=== PATIENT | female | born 1955 | race Caucasian/White ===

== ENCOUNTER 2019-11-17 13:56 | Inpatient (IN) | payer MEDICARE, MEDICAID ==
[~2019-11-17] VITALS: Ht 160 cm; Wt 82.1 kg
[2019-11-17] MEDS ORDERED: HYDR-3281 PO (14:10)
[2019-11-17] MEDS ORDERED: ONDANSETRON HCL 4MG/2ML INJ IV STA (14:29)
[2019-11-17] MEDS ORDERED: SODIUM CHLORIDE 0.9% 1,000 ML IV ONE (14:29)
[2019-11-17] MEDS ORDERED: MORPHINE SULFATE 4 MG/ML CPJ (NOT FOR IM USE) IV ONE ×2 (15:15→18:45)
[2019-11-17] MEDS ORDERED: FAMOTIDINE 20MG/2ML VIAL IV ONE (15:15)
[2019-11-17 15:43] LABS: HEMATOCRIT. 48.8 % (36.0-48.0); HEMOGLOBIN. 16.6 g/dL (12.0-16.0); MEAN CORPUSCULAR HEMOGLOBIN 29.8 pg (28.0-32.0); MEAN CORPUSCULAR VOLUME 87.3 fL (81.0-99.0); MEAN PLATELET VOLUME 8.4 fl (7.4-10.4); PLATELET 243 x1000/uL (130-400); RED BLOOD CELL COUNT 5.59 mill/uL (4.2-5.4)
[2019-11-17 15:46] LABS: CHLORIDE 102 mEq/L (98-107)
[2019-11-17 15:49] LABS: INR 0.9; PROTHROMBIN TIME 10.3 sec (9.6-11.0)
[2019-11-17 15:50] LABS: ETHANOL BLOOD < 10 mg/dL
[2019-11-17 16:36] LABS: PLATELET ESTIMATE NORMAL
[2019-11-17] MEDS ORDERED: ENALAPRIL 2.5MG/2ML VIAL 2ML IV ONE (17:15)
[2019-11-17 17:28] LABS: CLARITY URINE TURBID (CLEAR); COLOR URINE RED (YELLOW); KETONES URINE 3+ (NEGATIVE); LEUKOCYTE ESTERASE URINE 3+ (NEGATIVE); NITRITE URINE POSITIVE (NEGATIVE); OCCULT BLOOD URINE 3+ (NEGATIVE); PROTEIN URINE 3+ (NEGATIVE)
[2019-11-17] MEDS ORDERED: ENALAPRIL 1.25MG/ML VIAL 1ML IV NR (17:30)
[2019-11-17 17:35] LABS: *BARBITURATES SCREEN URINE NEGATIVE (NEGATIVE); *BENZODIAZEPINES SCREEN URINE NEGATIVE (NEGATIVE)
[2019-11-17 17:36] LABS: *COCAINE SCREEN URINE NEGATIVE (NEGATIVE); CANNABINOID URINE SCREEN PRESUMTIVE POSITIVE (NEGATIVE); METHADONE URINE SCREEN NEGATIVE (NEGATIVE); OPIATES URINE SCREEN PRESUMTIVE POSITIVE (NEGATIVE); PHENCYCLIDINE URINE SCREEN NEGATIVE (NEGATIVE)
[2019-11-17 17:37] LABS: *AMPHETAMINES SCREEN URINE NEGATIVE (NEGATIVE)
[2019-11-17] MEDS ORDERED: LEVOFLOXACIN 500MG PREMIX 100 ML IV ONE (18:30)
[2019-11-17] MEDS ORDERED: HYDRALAZINE 20MG/ML VIAL IV ONE (18:45)
[2019-11-17] MEDS: SODIUM CHLORIDE 0.9% 1,000 ML IV SCH (19:13)
[2019-11-17] MEDS ORDERED: CLONIDINE 0.1MG TABLET PO PRN (19:15)
[2019-11-17] MEDS ORDERED: HYDRALAZINE 20MG/ML VIAL IV PRN (19:15)
[2019-11-17] MEDS ORDERED: ACETAMINOPHEN 325MG TABLET PO PRN (19:15)
[2019-11-17] MEDS ORDERED: ONDANSETRON HCL 4MG/2ML INJ IV PRN (19:15)
[2019-11-17] MEDS ORDERED: DEXTROSE 50% WATER 50ML SYRINGE IV PRN (19:15)
[2019-11-17] MEDS: BLOOD SUGAR DIAGNOSTIC STRIP TEST SCH (21:00)
[2019-11-17 21:21] VITALS: BP 129/69
[2019-11-17] MEDS ORDERED: ZOLPIDEM TARTRATE 5MG TABLET PO PRN (22:15)
[2019-11-17] MEDS: AMLODIPINE 10MG TABLET PO SCH (22:41)
[2019-11-17] MEDS: MORPHINE SULFATE 2 MG/ML CPJ (NOT FOR IM USE) IV PRN (22:41)
[2019-11-17] MEDS: ZOLPIDEM TARTRATE 5MG TABLET PO PRN (22:54)
[2019-11-17] MEDS ORDERED: HYDROCORTISONE 1% RECTAL CREAM 30GM PR PRN (23:00)
[2019-11-17] MEDS: INSULIN LISPRO 100 UNITS/ML SUBCUT SCH (23:01)
[2019-11-17] MEDS: HEPARIN 5000 UNITS/ML VIAL SUBCUT SCH (23:11)
[2019-11-18] VITALS: BP 132/70
[2019-11-18 04:00] VITALS: BP 111/42
[2019-11-18] MEDS: MORPHINE SULFATE 2 MG/ML CPJ (NOT FOR IM USE) IV PRN ×3 (06:04→18:12)
[2019-11-18 06:05] LABS: CHLORIDE 108 mEq/L (98-107)
[2019-11-18] MEDS: BLOOD SUGAR DIAGNOSTIC STRIP TEST SCH ×4 (06:13→20:20)
[2019-11-18] MEDS: INSULIN LISPRO 100 UNITS/ML SUBCUT SCH ×4 (06:13→20:20)
[2019-11-18 06:43] LABS: HEMATOCRIT. 39.8 % (36.0-48.0); HEMOGLOBIN. 13.8 g/dL (12.0-16.0); MEAN CORPUSCULAR VOLUME 86.1 fL (81.0-99.0); MEAN PLATELET VOLUME 8.5 fl (7.4-10.4); PLATELET 223 x1000/uL (130-400); RED BLOOD CELL COUNT 4.62 mill/uL (4.2-5.4); RED CELL DISTRIBUTION WIDTH 14.8 % (11.6-14.6)
[2019-11-18] MEDS ORDERED: MAGNESIUM 1 G PREMIX 100 ML IV NR (07:00)
[2019-11-18] MEDS ORDERED: POTASSIUM CHLORIDE 20MEQ TABLET SR PO NR ×2 (07:10→09:00)
[2019-11-18 08:00] VITALS: BP 131/66
[2019-11-18] MEDS ORDERED: POTASSIUM CHLORIDE INJ 40 MEQ in DEXT 5% WATER 250 ML IV NR (08:00)
[2019-11-18] MEDS: AMLODIPINE 10MG TABLET PO SCH (09:33)
[2019-11-18] MEDS: HEPARIN 5000 UNITS/ML VIAL SUBCUT SCH ×2 (09:33→20:11)
[2019-11-18] MEDS ORDERED: ONDANSETRON HCL 4MG/2ML INJ IV PRN (10:15)
[2019-11-18] MEDS: SODIUM CHLORIDE 0.9% 1,000 ML IV SCH (10:39)
[2019-11-18 12:00] VITALS: BP 115/76
[2019-11-18] MEDS ORDERED: AMLO10TA4 MT (12:34)
[2019-11-18] MEDS ORDERED: FAMO20TA8 PO (12:44)
[2019-11-18] MEDS ORDERED: FLUT1DIS3 INH (12:47)
[2019-11-18] MEDS ORDERED: GABA-531 PO (12:47)
[2019-11-18] MEDS ORDERED: PRAV40TA MT (12:49)
[2019-11-18] MEDS ORDERED: SITA100T11 PO (12:49)
[2019-11-18] MEDS ORDERED: ZOLP10TA2 PO (12:51)
[2019-11-18 13:51] LABS: PLATELET ESTIMATE NORMAL
[2019-11-18] MEDS ORDERED: DOCUSATE SODIUM 100MG CAPSULE PO PRN (14:15)
[2019-11-18] MEDS ORDERED: SENNOSIDES/DOCUSATE SOD 8.6/50MG TABLET PO PRN (14:15)
[2019-11-18] MEDS ORDERED: POLYETHYLENE GLYCOL 3350 (17GM) 1 DOSE PACK PO PRN (14:15)
[2019-11-18] MEDS ORDERED: MAGNESIUM HYDROXIDE 400MG/5ML 30ML UDC PO PRN (14:15)
[2019-11-18] MEDS: INSULIN GLARGINE UD 100 UNITS/ML SYR SUBCUT SCH (14:50)
[2019-11-18] MEDS: HYDROCODONE/ACETAMINOPHEN 10/325MG TABLET PO PRN ×2 (15:17→21:04)
[2019-11-18 16:00] VITALS: BP 130/68
[2019-11-18] MEDS ORDERED: LEVOFLOXACIN 500MG PREMIX 100 ML IV SCH ×2 (19:00→21:00)
[2019-11-18 20:00] VITALS: BP 101/62
[2019-11-18] MEDS: ZOLPIDEM TARTRATE 5MG TABLET PO PRN (20:47)
[2019-11-19] VITALS: BP 138/65
[2019-11-19] MEDS: MORPHINE SULFATE 2 MG/ML CPJ (NOT FOR IM USE) IV PRN ×2 (01:54→08:32)
[2019-11-19] MEDS: HYDROCODONE/ACETAMINOPHEN 10/325MG TABLET PO PRN (04:37)
[2019-11-19] MEDS: BLOOD SUGAR DIAGNOSTIC STRIP TEST SCH ×4 (05:49→21:00)
[2019-11-19] MEDS: INSULIN LISPRO 100 UNITS/ML SUBCUT SCH ×4 (05:50→21:00)
[2019-11-19 06:57] LABS: BASOPHILS % 0.4 % (0.0-2.0); EOSINOPHILS % 1.6 % (0.0-5.0); HEMATOCRIT. 36.4 % (36.0-48.0); HEMOGLOBIN. 12.5 g/dL (12.0-16.0); LYMPHOCYTES % 15.2 % (20.0-50.0); MEAN CORPUSCULAR HEMOGLOBIN 29.7 pg (28.0-32.0); MEAN CORPUSCULAR VOLUME 86.8 fL (81.0-99.0); MEAN PLATELET VOLUME 8.5 fl (7.4-10.4); MONOCYTES % 10.1 % (2.0-8.0); NEUTROPHILS % 72.7 % (40.0-76.0); PLATELET 198 x1000/uL (130-400); RED CELL DISTRIBUTION WIDTH 14.9 % (11.6-14.6)
[2019-11-19 07:08] LABS: CHLORIDE 110 mEq/L (98-107)
[2019-11-19 08:00] VITALS: BP 128/52
[2019-11-19] MEDS: SODIUM CHLORIDE 0.9% 1,000 ML IV SCH ×3 (08:27→21:13)
[2019-11-19] MEDS: AMLODIPINE 10MG TABLET PO SCH (08:28)
[2019-11-19] MEDS: HEPARIN 5000 UNITS/ML VIAL SUBCUT SCH ×2 (08:30→21:00)
[2019-11-19] MEDS: INSULIN GLARGINE UD 100 UNITS/ML SYR SUBCUT SCH (10:00)
[2019-11-19] MEDS ORDERED: POTASSIUM CHLORIDE 20MEQ/PACKET PO NR (11:00)
[2019-11-19 12:33] VITALS: BP 164/70
[2019-11-19] MEDS ORDERED: HYDROCODONE/ACETAMINOPHEN 5/325MG TABLET PO PRN (13:00)
[2019-11-19] MEDS: MEROPENEM 1,000 MG in SODIUM CHLORIDE 0.9% 100 ML IV SCH ×2 (13:56→22:00)
[2019-11-19] MEDS ORDERED: POTASSIUM CHLORIDE 20MEQ TABLET SR PO NR (15:00)
[2019-11-19] MEDS: KETOROLAC 15MG/ML VIAL IV PRN ×2 (15:42→22:29)
[2019-11-19 16:16] VITALS: BP 114/66
[2019-11-19] MEDS: DIPHENHYDRAMINE 50MG/ML VIAL IV PRN (22:29)
[2019-11-19] MEDS: ZOLPIDEM TARTRATE 5MG TABLET PO PRN (22:52)
[2019-11-20] MEDS ORDERED: NITROFURANTOIN 100MG M/M CAPSULE PO SCH ×2 (02:00→09:00)
[2019-11-20] MEDS: KETOROLAC 15MG/ML VIAL IV PRN ×3 (04:45→12:51)
[2019-11-20] MEDS: DIPHENHYDRAMINE 50MG/ML VIAL IV PRN ×2 (05:22→12:11)
[2019-11-20] MEDS: BLOOD SUGAR DIAGNOSTIC STRIP TEST SCH ×2 (06:45→11:45)
[2019-11-20] MEDS: INSULIN LISPRO 100 UNITS/ML SUBCUT SCH ×2 (07:00→11:46)
[2019-11-20 07:34] LABS: BASOPHILS % 0.6 % (0.0-2.0); EOSINOPHILS % 0.9 % (0.0-5.0); HEMATOCRIT. 39.6 % (36.0-48.0); HEMOGLOBIN. 13.7 g/dL (12.0-16.0); LYMPHOCYTES % 14.4 % (20.0-50.0); MEAN CORPUSCULAR HEMOGLOBIN 29.8 pg (28.0-32.0); MEAN CORPUSCULAR VOLUME 85.9 fL (81.0-99.0); MONOCYTES % 6.1 % (2.0-8.0); PLATELET 218 x1000/uL (130-400); RED BLOOD CELL COUNT 4.61 mill/uL (4.2-5.4); RED CELL DISTRIBUTION WIDTH 14.8 % (11.6-14.6)
[2019-11-20 07:37] LABS: CHLORIDE 109 mEq/L (98-107)
[2019-11-20 08:00] VITALS: BP 156/80
[2019-11-20] MEDS: HEPARIN 5000 UNITS/ML VIAL SUBCUT SCH (08:51)
[2019-11-20] MEDS: AMLODIPINE 10MG TABLET PO SCH (08:52)
[2019-11-20] MEDS: INSULIN GLARGINE UD 100 UNITS/ML SYR SUBCUT SCH (10:00)
[2019-11-20] MEDS: SODIUM CHLORIDE 0.9% 1,000 ML IV SCH (11:01)
[2019-11-20] MEDS ORDERED: MAGNESIUM OXIDE 400MG TABLET PO SCH (12:00)
[2019-11-20 12:45] VITALS: BP 173/90
[2019-11-20 13:17] VITALS: BP 129/50
[2019-11-20 14:00] VITALS: BP 129/50
[2019-11-20] MEDS ORDERED: HYDROCODONE/ACETAMINOPHEN 5/325MG TABLET PO PRN (15:45)
== END 2019-11-20 15:50 | DRG 872 ==
LOC: ER 13:56 → EDBEDREQ 18:48 → EDBEDREQTM 18:48 → EDBEDREQSVC 18:48 → ENRESERV 20:37 → 5WST 21:23
PROVIDERS: ADMIT Internal Medicine; ATTEND Internal Medicine
DX: A41.59 Other Gram-negative sepsis (principal); I16.1 Hypertensive emergency; N39.0 Urinary tract infection, site not specified; Z16.12 Extended spectrum beta lactamase (ESBL) resistance; C20 Malignant neoplasm of rectum; E11.65 Type 2 diabetes mellitus with hyperglycemia; E87.6 Hypokalemia; F32.9 Major depressive disorder, single episode, unspecified; G89.29 Other chronic pain; I10 Essential (primary) hypertension; K59.00 Constipation, unspecified; J06.9 Acute upper respiratory infection, unspecified; Z90.49 Acquired absence of other specified parts of digestive tract; Z90.710 Acquired absence of both cervix and uterus; Z59.0 Homelessness; Z79.51 Long term (current) use of inhaled steroids; Z79.84 Long term (current) use of oral hypoglycemic drugs; Z79.899 Other long term (current) drug therapy; Z88.6 Allergy status to analgesic agent; Z88.0 Allergy status to penicillin
CPT/HCPCS: 36415; 71045; 73110; 74176; 80053; 80305; 80320; 81003; 82962; 83036; 83605; 83735; 84484; 85025; 87077; 87186; 93005; 97162; 97166; 99291; J0360; J1200; J1644; J1815; J1885; J1956; J2185; J2270; J2405; J3475; J3480; J3490; J7030; J7050; J7060; G0480